=== PATIENT | female | born 1960 | race African-American/Black ===

== ENCOUNTER 2024-05-16 18:03 | Emergency (ER) | payer OTHER ==
[~2024-05-16] VITALS: Ht 157.5 cm; Wt 81.6 kg
[2024-05-16] MEDS ORDERED: IBUPROFEN 400 MG TABLET ONE (21:14)
[2024-05-16] MEDS: IBUPROFEN 400 MG TABLET PO ONE (21:14)
[2024-05-16 22:11] VITALS: BP 122/76; TEMP 97.9; O2SAT 99
== END 2024-05-16 22:12 | disposition home or self-care (01) ==
LOC: ER 18:30
DX: S50.11XA Contusion of right forearm, initial encounter (principal); S70.01XA Contusion of right hip, initial encounter; I10 Essential (primary) hypertension; W10.8XXA Fall (on) (from) other stairs and steps, initial encounter; Y93.89 Activity, other specified; Y92.89 Other specified places as the place of occurrence of the external cause; Y99.8 Other external cause status
CPT/HCPCS: 73090-TC; 73502